=== PATIENT | female | born 1950 | race Caucasian/White ===

== ENCOUNTER → 2016-05-08 | Outpatient (CLI) | payer BC ==
[~2016-05-08] MED LIST: LISI-461 PO
--- NOTE | 2016-05-08 13:29 | MAMMOGRAPHY REPORT ---
UNILATERAL RIGHT DIGITAL DIAGNOSTIC MAMMOGRAM TOMOSYNTHESIS WITH CAD AND TARGETED RIGHT ULTRASOUND: 05/08/2016 CLINICAL HISTORY: 65-year-old woman with a one-week history of a palpable mobile soft lump in the 3: 00 right breast. Family history of breast cancer = sister. TECHNIQUE: Right breast tomosynthesis in addition to standard 2D mammography was performed. Current study was also evaluated with a Computer Aided Detection (CAD) system. COMPARISON: Comparison is made to exams dated: 10/20/2015 mammogram, 10/14/2013 mammogram, 10/13/2012 ma mmogram, 10/09/2011 mammogram, and 10/04/2010 mammogram - [facility]. BREAST COMPOSITION: There are scattered areas of fibroglandular density in the right breast. FINDINGS: A triangular skin palpable marker overlies the 3:00 posterior right breast, denoting the p alpable mass pointed out by the patient. The breast parenchymal pattern is similar to prior mammogr ams. There are moderate vascular calcifications. No obvious new mass, architectural distortion or cluster of microcalcifications is seen, with particular attention to the area of palpable concern in the 3:00 right breast. Targeted ultrasound was performed in the area of palpable lump pointed out by the patient (the 3:00 right breast, 7 cm from the nipple). On visual inspection there is a 1 x 2 cm raised mass in the 3: 00 far medial breast on palpation, this mass is soft and mobile. On ultrasound, there is an encapsu lated well-circumscribed fat echogenicity mass that is oval and parallel in orientation. It measure s 21.5 x 7.2 x 23.4 mm and is compatible with a lipoma. IMPRESSION: ACR BI-RADS CATEGORY 2: BENIGN, TARGETED ULTRASOUND ACR BI-RADS CATEGORY 2: BENIGN The new palpable mass in the 3:00 medial right breast correlates with a lipoma on ultrasound. There is no suspicious solid mass mammographically or sonographically. Overall, there is no mammographic evidence of malignancy within the right breast. Return to annual mammogram screening schedule is r ecommended. The patient has been verbally notified of the results. Approximately 10% of breast cancers are not detected with mammography. A negative mammographic repor t should not delay biopsy if a clinically suggestive mass is present. Fauzia Garcia M.D. ay/:05/08/2016 11:02:40 Religion Teacher: Vijay Adkins RT(R)(M), [facility] letter sent: Normal /2 BI-RADS Code: ACR BI-RADS Category 2: Benign Ultrasound BI-RADS: ACR BI-RADS Category 2: Benign
== END | disposition home or self-care (01) ==
LOC: C.MAMM 10:07
PROVIDERS: ATTEND Nurse Practitioner
DX: N63 Unspecified lump in breast (principal)

== ENCOUNTER → 2016-10-24 | Outpatient (CLI) | payer BC ==
--- NOTE | 2016-10-25 12:10 | MAMMOGRAPHY REPORT ---
BILATERAL DIGITAL SCREENING MAMMOGRAM TOMOSYNTHESIS WITH CAD: 10/24/2016 CLINICAL HISTORY: Routine screening. Patient has no complaints. TECHNIQUE: Breast tomosynthesis in addition to standard 2D mammography was performed. Current study was also evaluated with a Computer Aided Detection (CAD) system. COMPARISON: Comparison is made to exams dated: 05/08/2016 mammogram, 10/20/2015 mammogram, 10/18/2014 m ammogram, 10/14/2013 mammogram, 10/13/2012 mammogram, and 10/09/2011 mammogram - [facility]. BREAST COMPOSITION: The tissue of both breasts is heterogeneously dense, which may obscure small mas ses. FINDINGS: There are mild to moderate vascular calcifications in the breasts. No suspicious mass, arc hitectural distortion or cluster of suspicious microcalcifications is seen. IMPRESSION: ACR BI-RADS CATEGORY 1: NEGATIVE There is no mammographic evidence of malignancy. A 1 year screening mammogram is recommended. The pa tient will receive written notification of the results. Approximately 10% of breast cancers are not detected with mammography. A negative mammographic report should not delay biopsy if a clinically suggestive mass is present. Fauzia Garcia M.D. ay/:10/24/2016 15:50:05 [employer] Filler [employer]: Kandis HERNANDEZ(Isabel)(Jeny)([place]), [facility] letter sent: Normal 1/2 BI-RADS Code: ACR BI-RADS Category 1: Negative
== END | disposition home or self-care (01) ==
LOC: C.MAMM 10:00
PROVIDERS: ATTEND Family Medicine
DX: Z12.31 Encounter for screening mammogram for malignant neoplasm of breast (principal)